=== PATIENT | female | born 1975 | race Caucasian/White ===

== ENCOUNTER 2018-03-04 12:53 | Inpatient (IN) | payer OTHER ==
[~2018-03-04] VITALS: Ht 165.1 cm; Wt 87.5 kg
[2018-03-04] MEDS: LACTATED RINGERS 1,000 ML IV SCH ×2 (01:01→14:39)
[2018-03-04] MEDS ORDERED: PROMETHAZINE 25 MG/ML VIAL IVP PRN (14:05)
[2018-03-04] MEDS ORDERED: METHYLERGONOVINE 0.2 MG/ML AMP IM PRN (14:05)
[2018-03-04] MEDS ORDERED: OXYTOCIN 10 UNITS/ML VIAL IM SCH (14:05)
[2018-03-04] MEDS ORDERED: AMPICILLIN 2,000 MG in NACL 0.9% MINI-BAG PLUS 100 ML IV SCH (14:05)
[2018-03-04] MEDS ORDERED: CARBOPROST 250 MCG/ML AMP IM PRN (14:05)
[2018-03-04] MEDS ORDERED: NALBUPHINE HYDROCHLORIDE 10 MG/ML VIAL IVP PRN (14:05)
[2018-03-04] MEDS ORDERED: AMPICILLIN 2,000 MG VIAL ONE (14:35)
[2018-03-04 15:43] LABS: BASOPHILS % (AUTO) 0.2 % (0.0-2.0); EOSINOPHILS # (AUTO) 0.1 K/uL (0-0.4); EOSINOPHILS % (AUTO) 0.8 % (0.0-4.0); HEMATOCRIT 39.8 % (36-48); HEMOGLOBIN 13.2 g/dL (12.0-16.0); LYMPHOCYTES # (AUTO) 1.2 K/uL (2.5-16.5); LYMPHOCYTES % (AUTO) 11.3 % (20.5-51.1); MEAN CORPUSCULAR HEMOGLOBIN 31 pg (27-31); MEAN CORPUSCULAR HGB CONC 33 g/dL (33-37); MEAN CORPUSCULAR VOLUME 91.6 fL (80-94); MONOCYTES # (AUTO) 0.6 K/uL (0.8-1.0); MONOCYTES % (AUTO) 6.1 % (1.7-9.3); NEUTROPHILS # (AUTO) 8.7 K/uL (1.8-7.7); NEUTROPHILS % (AUTO) 81.6 % (42.2-75.2); PLATELET COUNT (AUTO) 182 K/uL (140-450); RED BLOOD CELL COUNT(AUTO) 4.34 MIL/uL (4.20-5.40); RED CELL DISTRIBUTION WIDTH 14.2 % (11.6-13.7); WHITE BLOOD COUNT (AUTO) 10.7 K/uL (4.8-10.8)
[2018-03-04 15:45] LABS: APPEARANCE,URINE CLEAR (CLEAR); BILIRUBIN,URINE NEGATIVE (NEGATIVE); BLOOD, URINE TRACE-L (NEGATIVE); COLOR,URINE YELLOW (YELLOW); LEUKOCYTE ESTERASE ,URINE NEGATIVE (NEGATIVE); NITRITE, URINE NEGATIVE (NEGATIVE); UGLUCOSE NEGATIVE (NEGATIVE)
[2018-03-04 15:54] LABS: ANION GAP 17.9 (8-16); CARBON DIOXIDE 20.8 mmol/L (21-32); CREATININE 0.5 mg/dL (0.6-1.3); POTASSIUM 3.7 mmol/L (3.5-5.1)
[2018-03-04 15:57] LABS: RBC,URINE 3-10 (FEW) /HPF (0-5); WBC,URINE 0-5 (RARE) /HPF (0-5)
[2018-03-04 16:00] LABS: ALBUMIN 2.4 g/dL (3.4-5.0); TOTAL BILIRUBIN 0.4 mg/dL (0.0-1.0)
[2018-03-04] MEDS ORDERED: BETAMETH ACET/BETAMETH NA PH 30 MG/5 ML VIAL IM ONE (16:37)
[2018-03-04 16:40] VITALS: BP 130/94
[2018-03-04] MEDS ORDERED: LABETALOL 200 MG TAB PO SCH (16:41)
[2018-03-04] MEDS ORDERED: LABETALOL 200 MG TAB ONE (16:54)
[2018-03-04] MEDS ORDERED: AMPICILLIN 1,000 MG VIAL ONE ×2 (18:26→21:58)
[2018-03-04] MEDS: AMPICILLIN 1,000 MG in NACL 0.9% 50 ML IV SCH ×2 (18:28→22:30)
[2018-03-04] MEDS ORDERED: BETAMETH ACET/BETAMETH NA PH 30 MG/5 ML VIAL IM SCH (21:00)
[2018-03-05] MEDS ORDERED: AMPICILLIN 1,000 MG VIAL ONE ×5 (01:56→22:16)
[2018-03-05] MEDS: AMPICILLIN 1,000 MG in NACL 0.9% 50 ML IV SCH ×5 (02:30→22:29)
[2018-03-05] MEDS ORDERED: BETAMETH ACET/BETAMETH NA PH 30 MG/5 ML VIAL IM ONE (04:38)
--- NOTE | 2018-03-05 08:30 | NUR ---
PATIENT HAS BEEN SCREENED AND CATEGORIZED LOW NUTRITION RISK. PATIENT WILL BE SEEN WITHIN 7 DAYS OF ADMISSION. 03/11/[address]
[2018-03-05] MEDS ORDERED: LABETALOL 100 MG TAB ONE ×2 (09:01→20:40)
[2018-03-05] MEDS: LABETALOL 100 MG TAB PO SCH ×2 (09:02→21:04)
[2018-03-05] MEDS: LACTATED RINGERS 1,000 ML IV SCH ×2 (09:06→18:30)
[2018-03-05] MEDS ORDERED: OXYTOCIN 20 UNITS in LACTATED RINGERS 1,000 ML IV SCH (09:55)
[2018-03-05] MEDS ORDERED: TERBUTALINE 1 MG/ML VIAL SUBQ ONE (20:27)
[2018-03-05] MEDS: TERBUTALINE 1 MG/ML VIAL SUBQ SCH ×2 (21:04→21:16)
[2018-03-06] MEDS: TERBUTALINE 2.5 MG TAB PO SCH ×3 (01:11→08:55)
[2018-03-06] MEDS ORDERED: TERBUTALINE 2.5 MG TAB ONE ×3 (01:13→08:47)
[2018-03-06] MEDS ORDERED: AMPICILLIN 1,000 MG VIAL ONE ×6 (02:22→22:25)
[2018-03-06] MEDS: AMPICILLIN 1,000 MG in NACL 0.9% 50 ML IV SCH ×6 (02:30→22:31)
[2018-03-06] MEDS: LACTATED RINGERS 1,000 ML IV SCH ×2 (03:44→13:10)
[2018-03-06] MEDS ORDERED: LABETALOL 100 MG TAB ONE ×2 (08:49→21:02)
[2018-03-06] MEDS: LABETALOL 100 MG TAB PO SCH ×2 (08:56→21:05)
[2018-03-07] MEDS: LACTATED RINGERS 1,000 ML IV SCH ×2 (00:08→09:38)
[2018-03-07] MEDS ORDERED: AMPICILLIN 1,000 MG VIAL ONE ×3 (02:24→10:24)
[2018-03-07] MEDS: AMPICILLIN 1,000 MG in NACL 0.9% 50 ML IV SCH ×2 (02:30→06:32)
[2018-03-07] MEDS ORDERED: NALBUPHINE 10 MG/ML AMP ONE (08:45)
[2018-03-07] MEDS ORDERED: PROMETHAZINE 25 MG/ML VIAL ONE (08:46)
[2018-03-07] MEDS ORDERED: LABETALOL 100 MG TAB ONE (09:37)
[2018-03-07] MEDS ORDERED: BUPIVACAINE 0.125%/NS PREMIX 250 ML ONE (10:52)
[2018-03-07] MEDS ORDERED: LIDOCAINE 2% 1000 MG/50 ML VIAL INJ ONE (11:54)
[2018-03-07] MEDS ORDERED: OXYTOCIN 10 UNITS/ML VIAL ONE (11:55)
[2018-03-07] MEDS ORDERED: MEASLES, MUMPS, AND RUBELLA 1 VIAL SQVAC PRN (13:55)
[2018-03-07] MEDS ORDERED: OXYTOCIN 20 UNITS in LACTATED RINGERS 1,000 ML IV SCH (13:55)
[2018-03-07] MEDS ORDERED: oxyCODONE/APAP 5/325 MG 1 TAB TAB PO PRN (13:55)
[2018-03-07] MEDS ORDERED: BENZOCAINE/MENTHOL 20%-0.5% 60 GM CAN TP PRN (13:55)
[2018-03-07] MEDS ORDERED: IBUPROFEN 600 MG TAB PO PRN (13:55)
[2018-03-07] MEDS: ACETAMINOPHEN 325 MG TAB PO PRN (21:09)
[2018-03-08] MEDS: ACETAMINOPHEN 325 MG TAB PO PRN (07:42)
[2018-03-08 08:55] LABS: BASOPHILS # (AUTO) 0.1 K/uL (0.00-0.22); BASOPHILS % (AUTO) 0.7 % (0.0-2.0); EOSINOPHILS # (AUTO) 0.2 K/uL (0-0.4); EOSINOPHILS % (AUTO) 1.9 % (0.0-4.0); HEMATOCRIT 34.4 % (36-48); HEMOGLOBIN 11.5 g/dL (12.0-16.0); LYMPHOCYTES # (AUTO) 2.1 K/uL (2.5-16.5); LYMPHOCYTES % (AUTO) 17.7 % (20.5-51.1); MEAN CORPUSCULAR HEMOGLOBIN 30 pg (27-31); MEAN CORPUSCULAR HGB CONC 34 g/dL (33-37); MEAN CORPUSCULAR VOLUME 89.8 fL (80-94); MONOCYTES # (AUTO) 0.8 K/uL (0.8-1.0); MONOCYTES % (AUTO) 6.6 % (1.7-9.3); NEUTROPHILS # (AUTO) 8.5 K/uL (1.8-7.7); NEUTROPHILS % (AUTO) 73.1 % (42.2-75.2); PLATELET COUNT (AUTO) 169 K/uL (140-450); RED BLOOD CELL COUNT(AUTO) 3.83 MIL/uL (4.20-5.40); RED CELL DISTRIBUTION WIDTH 14.1 % (11.6-13.7); WHITE BLOOD COUNT (AUTO) 11.6 K/uL (4.8-10.8)
[2018-03-08] MEDS ORDERED: LABETALOL 100 MG TAB PO SCH ×2 (11:32→21:00)
[2018-03-09] MEDS ORDERED: FERR325E14 PO (13:19)
[2018-03-09] MEDS ORDERED: ACET-2619 PO (13:21)
== END 2018-03-09 15:10 | disposition home or self-care (01) | DRG 560 ==
LOC: OBSVTOIN 12:53 → MLD 12:53 → MFCC 03-07 16:00
PROVIDERS: ADMIT Obstetrics & Gynecology; ATTEND Obstetrics & Gynecology
PROC: 10E0XZZ Delivery of Products of Conception, External Approach (ICD-10-PCS; principal; 2018-03-07)
PROC: 3E033VJ Introduction of Other Hormone into Peripheral Vein, Percutaneous Approach (ICD-10-PCS; 2018-03-07)
PROC: 3E0R3BZ Introduction of Anesthetic Agent into Spinal Canal, Percutaneous Approach (ICD-10-PCS; 2018-03-07)
PROC: 00HU33Z Insertion of Infusion Device into Spinal Canal, Percutaneous Approach (ICD-10-PCS; 2018-03-07)
PROC: 0HQ9XZZ Repair Perineum Skin, External Approach (ICD-10-PCS; 2018-03-07)
DX: O42.913 Preterm premature rupture of membranes, unspecified as to length of time between rupture and onset of labor, third trimester (principal); K59.00 Constipation, unspecified; O75.89 Other specified complications of labor and delivery; O70.0 First degree perineal laceration during delivery; Z3A.36 36 weeks gestation of pregnancy; Z37.0 Single live birth
CPT/HCPCS: 36415; 59409; 76805; 76815; 80053; 81001; 85025; 86592; 86762; 86886; 86900; 86901; 87653-90; C1758; J0290; J0702; J2001; J2300; J2550; J2590; J3105; J3490; J7120; Q0092